=== PATIENT | male | born 1925 | race Asian ===

== ENCOUNTER 2016-09-02 11:33 | Inpatient (IN) | payer MEDICARE, MEDICAID ==
[~2016-09-02] VITALS: Ht 157.5 cm; Wt 50.3 kg
--- NOTE | 2016-09-02 11:45 | NUR ---
PT BIBA FOR "CHEST PAIN WHEN COUGHING"; AND GENERALIZED PAIN. PT AAOX1. VSS. MD AT BS FOR EVAL. NOTED DISCOLORATION ON B THUMBS. SAFETY AND COMFORT MEASURES PROVIDED. WILL MONITOR.
[2016-09-02 11:54] LABS: BASOPHILS % (AUTO) 0.5 % (0.0-2.0); EOSINOPHILS # (AUTO) 0.2 /CMM (0.0-0.7); HEMATOCRIT 50 % (39-51); HEMOGLOBIN 16.5 g/dL (13.5-17.5); LYMPHOCYTES # (AUTO) 3.1 /CMM (0.8-4.8); LYMPHOCYTES % (AUTO) 33.8 % (20.0-44.0); MEAN CORPUSCULAR HEMOGLOBIN 31 PG (26.0-33.0); MEAN CORPUSCULAR HGB CONC 33 g/dl (31.0-36.0); MEAN CORPUSCULAR VOLUME 95 fL (80-96); MONOCYTES # (AUTO) 0.5 /CMM (0.1-1.30); MONOCYTES % (AUTO) 5.8 % (2.0-12.0); NEUTROPHILS # (AUTO) 5.3 /CMM (1.8-8.9); NEUTROPHILS % (AUTO) 57.9 % (43.0-81.0); PLATELET COUNT (AUTO) 213 /CMM (150-450); RED BLOOD CELL COUNT(AUTO) 5.26 MIL/uL (4.5-6.0); WHITE BLOOD COUNT (AUTO) 9.1 K/uL (4.3-11.0)
[2016-09-02] MEDS ORDERED: FURO-145 PO (12:02)
[2016-09-02] MEDS ORDERED: GUAI10SY3 PO (12:02)
[2016-09-02] MEDS ORDERED: ALBU2.5V13 IH (12:02)
[2016-09-02] MEDS ORDERED: FLUT16SP NS (12:02)
[2016-09-02] MEDS ORDERED: ATOR10TA PO (12:02)
[2016-09-02] MEDS ORDERED: ACET-2605 PO (12:02)
[2016-09-02] MEDS ORDERED: FINA5TAB11 PO (12:02)
[2016-09-02] MEDS ORDERED: SPIR25TA PO (12:02)
[2016-09-02] MEDS ORDERED: DOCU-25 PO (12:02)
[2016-09-02] MEDS ORDERED: TAMS-12 PO (12:02)
[2016-09-02] MEDS ORDERED: ALBU18HF2 IH (12:02)
[2016-09-02] MEDS ORDERED: MULT-659 PO (12:02)
[2016-09-02] MEDS ORDERED: ERGO50003 PO (12:02)
[2016-09-02] MEDS ORDERED: GABA-532 PO (12:02)
[2016-09-02] MEDS ORDERED: SODI1TAB3 PO (12:02)
[2016-09-02] MEDS ORDERED: ATEN25TA PO (12:02)
[2016-09-02 12:06] LABS: CALCIUM, SERUM 8.9 mg/dL (8.5-10.1); CARBON DIOXIDE 31 mmol/L (21-32); CHLORIDE 97 mmol/L (98-107); CREATININE 0.9 mg/dL (0.6-1.3); GLUCOSE 91 mg/dL (74-106); POTASSIUM 4.3 mmol/L (3.5-5.1); SODIUM SERUM 131 mmol/L (136-145); UREA NITROGEN, BLOOD 16 mg/dL (7-18)
[2016-09-02 12:09] LABS: INR 0.96 (0.87-1.13)
[2016-09-02 12:12] LABS: ALANINE AMINOTRANSFERASE 20 U/L (12-78); ALKALINE PHOSPHATASE 62 U/L (46-116); ASPARTATE AMINOTRANSFERASE 21 U/L (15-37); BILIRUBIN,DIRECT 0.1 mg/dL (0.0-0.2); BILIRUBIN,TOTAL 0.6 mg/dL (0.2-1.0); TOTAL PROTEIN, SERUM 8.3 g/dL (6.4-8.2)
[2016-09-02 12:14] LABS: TROPONIN I < 0.017 ng/mL (0.00-0.056)
--- NOTE | 2016-09-02 13:00 | NUR ---
CALLED NURSING SUP. FOR TELE BED
--- NOTE | 2016-09-02 13:15 | NUR ---
DR.RABBANI MCCABE
--- NOTE | 2016-09-02 14:22 | NUR ---
REPORT GIVEN TO MACI ALLEN FOR TELE 312-2.
[2016-09-02 15:07] LABS: MAGNESIUM 2.2 mg/dL (1.8-2.4); PHOSPHORUS 3.8 mg/dL (2.5-4.9)
[2016-09-02 15:35] LABS: THYROID STIMULATING HORMONE 1.111 uIU/mL (0.358-3.74)
[2016-09-02 16:00] VITALS: BP 141/72
[2016-09-02] MEDS ORDERED: IV SET PRIMARY PUMP SET 1 EA INFUS.SET MC ONE ×2 (16:18→16:31)
[2016-09-02] MEDS: IV NS 0.9% 1,000 ML IV PRN (16:26)
[2016-09-02] MEDS: ASPIRIN 81 MG TAB.CHEW PO SCH (16:26)
[2016-09-02] MEDS: PANTOPRAZOLE 40 MG TABLET.DR PO SCH (16:26)
--- NOTE | 2016-09-02 16:30 | NUR ---
MS/BOARD MEMBER PT. WAS ADMITTED TO ROOM 312 BED 1. PT. WAS IN STABLE CONDITION. VITAL SIGNS BP 141/72, PULSE 69, RR 18, TEMP. 97.8 F, OXYGEN SATURATION IS 98%, AND SINUS RHYTHM 65. PT. WAS IN BED A&OX 1-2. PT. HAS A RIGHT ANTECUBITAL PATENT IV ACCESS SITE. IV FLUIDS ADMINISTERED NORMAL SALINE 70 ML/HR. 81 MG OF ASPIRIN AND PROTONIX PER MD ORDER. SKIN WAS ASSESSED, NO SKIN IMPAIRMENT. PT. HAS SKIN DISCOLORATION OF RIGHT AND LEFT THUMB, AND PHOTOS TAKEN. PT. WAS ASSIGNED TO DR. DUNCAN.
[2016-09-02 17:07] VITALS: BP 141/72
--- NOTE | 2016-09-02 18:30 | NUR ---
MS/RN CONTACTED DR. DUNCAN ON CELL PHONE. SAID THAT HE WOULD NOTIFY AN ENGRAVER WOOD DOCTOR TO CONTACT ME FOR NEW ORDERS.
--- NOTE | 2016-09-02 18:45 | NUR ---
MS/RN DR. JANUSZ OCONNELL CALLED AND PROVIDED NEW ORDER. MD ENDORSED TO ORDER CARDIAC DIET, IV HEP LOCK, CBC, BMP, MAGNESIUM, PHOSPHORUS, LIPID PANEL, AND TROPONIN EVERY 6 HOURS X2, AND ECHOCARDIOGRAM. COULD NOT FIND PT. HOME MEDICATION LIST AT THE TIME, AND MD REQUESTED TO CALL BACK WITH PT.'S HOME MEDICATION LIST.
--- NOTE | 2016-09-02 18:50 | NUR ---
MS/RN CALLED DOCTOR BACK. NO ONE ANSWERED AT DR. OCONNELL'S OFFICE TO PROVIDE PT.'S HOME MEDICATION LIST.
--- NOTE | 2016-09-02 19:00 | NUR ---
MS/RN CALLED DR. OCONNELL OFFICE, NO ANSWER. LEFT MESSAGE.
--- NOTE | 2016-09-02 19:30 | NUR ---
MS/RN CLOSING NOTE PT. IS LYING IN BED AWAKE, A&OX 1-2. PT. DID NOT C/O CHEST PAIN. NO S/S OF DISTRESS, NO SOB. IV FLUIDS RUNNING AT 70 ML/HR ON RIGHT IV ANTECUBITAL SITE. PT. HAS TELEMETRY LEADS ON AND IS IN SINUS RHYTHM 65 BPM. BED IS IN LOW POSITION, 2 SIDE RAILS UP, CALL LIGHT WITHIN REACH, AND ALL NEEDS ATTENDED TO. WILL ENDORSE REPORT TO PAVING BED MAKER NURSE.
--- NOTE | 2016-09-02 19:30 | NUR ---
HOT HEAD MACHINE OPERATOR NOTES RECEIVED PT IS LYING IN BED AWAKE, A&OX 1-2. PT. VERBALLY RESPONSIVE. FAMILY AT BED SIDE. NO S/S OF DISTRESS, NO SOB. IV FLUIDS RUNNING AT 70 ML/HR ON RIGHT IV ANTECUBITAL SITE. PT ON TELE MONITOR, SINUS RHYTHM 68 BPM. SAFETY PRECAUTIONS OBSERVED. BED IS IN LOW POSITION, CALL LIGHT WITHIN REACH, AND ALL NEEDS ATTENDED. WILL CONTINUE TO MONITOR. STILL AWAITING FOR DR. KENNEDY'S CALL BACK REGARDING THE MED RECON.
[2016-09-02 20:00] VITALS: BP 147/82
[2016-09-02] MEDS ORDERED: ALBUTEROL SULFATE 8 GM HFA.AER.AD IH PRN ×2 (20:30→22:00)
[2016-09-02] MEDS ORDERED: ACETAMINOPHEN 650 MG/20.3 ML UDC PO PRN (20:30)
[2016-09-02] MEDS ORDERED: ALBUTEROL FS 2.5 MG/0.5 ML VIAL.NEB NEB PRN (20:30)
--- NOTE | 2016-09-02 20:45 | NUR ---
RECEIVED A CALL BACK FROM BILLIE RAYMOND TO CONTINUE MEDICATIONS FROM MED [facility] AND ALSO ORDERED AMBIEN, ZOFRAN, NITRO OINTMENT AND LOVENOX , WITH NEW ORDERS NOTED AND CARRIED OUT.
[2016-09-02] MEDS ORDERED: ZOLPIDEM TARTRATE 5 MG TABLET PO PRN (21:00)
[2016-09-02] MEDS ORDERED: ENOXAPARIN SODIUM 40 MG/0.4 ML DISP.SYRIN SQ SCH (21:00)
[2016-09-02] MEDS ORDERED: ONDANSETRON HCL/PF 4 MG/2 ML VIAL IV PRN (21:00)
[2016-09-02] MEDS ORDERED: Z GUARD REMEDY 2 OZ OINT TP PRN (21:00)
[2016-09-02] MEDS ORDERED: FLUTICASONE 110MCG 1 EA INHALER IH SCH (21:00)
--- NOTE | 2016-09-02 21:22 | NUR ---
FAXED MED RECON TO PHARMACY AND SPOKE WITH SKINNY, SHE RECEIVED THE FAX ALREADY.
[2016-09-02] MEDS ORDERED: ERGOCALCIFEROL (VITAMIN D 2) 50,000 UNIT CAPSULE PO SCH (22:00)
[2016-09-02] MEDS ORDERED: ATORVASTATIN 10 MG TABLET PO SCH ×2 (22:00)
[2016-09-02] MEDS ORDERED: GABAPENTIN 100 MG CAPSULE PO PRN (22:00)
[2016-09-02] MEDS ORDERED: ALBUTEROL FS 2.5 MG/0.5 ML VIAL.NEB IH PRN (22:00)
[2016-09-02] MEDS ORDERED: MISCELLANEOUS MED 1 EA EA PO PRN (22:00)
[2016-09-02] MEDS ORDERED: TAMSULOSIN 0.4 MG CAP.SR.24H PO SCH (22:00)
[2016-09-02] MEDS ORDERED: GUAIFENESIN/CODEINE 10 ML UDC PO PRN (22:00)
[2016-09-02] MEDS: GUAIFENESIN/CODEINE 10 ML UDC PO PRN (23:59)
[2016-09-03] VITALS: BP 158/72
[2016-09-03] MEDS: NITROGLYCERIN 30 GM TUBE TP SCH ×4 (00:39→17:20)
[2016-09-03 04:00] VITALS: BP 121/54
[2016-09-03] MEDS: GUAIFENESIN/CODEINE 10 ML UDC PO PRN (06:23)
[2016-09-03] MEDS: IV NS 0.9% 1,000 ML IV PRN (06:43)
--- NOTE | 2016-09-03 06:52 | NUR ---
ARTISTS' BOOKING REPRESENTATIVE NOTES PT IN BED ASLEEP, A&OX 1-2. PT. AROUSES EASILY, VERBALLY RESPONSIVE. NO S/S OF DISTRESS, NO SOB. IV FLUIDS RUNNING AT 70 ML/HR ON RIGHT IV ANTECUBITAL SITE. PT ON TELE MONITOR, SINUS RHYTHM 68 BPM. SAFETY PRECAUTIONS OBSERVED. BED IS IN LOW POSITION, CALL LIGHT WITHIN REACH, AND ALL NEEDS ATTENDED. WILL ENDORSE TO NEXT SHIFT FOR ELI.
[2016-09-03 06:55] LABS: BASOPHILS % (AUTO) 0.3 % (0.0-2.0); EOSINOPHILS # (AUTO) 0.1 /CMM (0.0-0.7); EOSINOPHILS % (AUTO) 1.6 % (0.0-6.0); HEMATOCRIT 46 % (39-51); HEMOGLOBIN 14.8 g/dL (13.5-17.5); LYMPHOCYTES # (AUTO) 2.2 /CMM (0.8-4.8); MEAN CORPUSCULAR HEMOGLOBIN 31 PG (26.0-33.0); MEAN CORPUSCULAR HGB CONC 32 g/dl (31.0-36.0); MEAN CORPUSCULAR VOLUME 97 fL (80-96); MONOCYTES # (AUTO) 0.8 /CMM (0.1-1.30); NEUTROPHILS # (AUTO) 5.4 /CMM (1.8-8.9); NEUTROPHILS % (AUTO) 63.1 % (43.0-81.0); PLATELET COUNT (AUTO) 225 /CMM (150-450); RED BLOOD CELL COUNT(AUTO) 4.71 MIL/uL (4.5-6.0); WHITE BLOOD COUNT (AUTO) 8.5 K/uL (4.3-11.0)
[2016-09-03 07:04] VITALS: BP 122/72
[2016-09-03 07:06] LABS: ALANINE AMINOTRANSFERASE 22 U/L (12-78); ALBUMIN 3.4 g/dL (3.4-5.0); ALKALINE PHOSPHATASE 50 U/L (46-116); ASPARTATE AMINOTRANSFERASE 23 U/L (15-37); BILIRUBIN,TOTAL 0.7 mg/dL (0.2-1.0); CALCIUM, SERUM 8.7 mg/dL (8.5-10.1); CARBON DIOXIDE 27 mmol/L (21-32); CHLORIDE 101 mmol/L (98-107); CREATININE 0.9 mg/dL (0.6-1.3); GLUCOSE 72 mg/dL (74-106); MAGNESIUM 2.1 mg/dL (1.8-2.4); PHOSPHORUS 3.3 mg/dL (2.5-4.9); POTASSIUM 4.7 mmol/L (3.5-5.1); SODIUM SERUM 136 mmol/L (136-145); TOTAL PROTEIN, SERUM 7.1 g/dL (6.4-8.2); UREA NITROGEN, BLOOD 16 mg/dL (7-18)
[2016-09-03 07:20] LABS: TROPONIN I < 0.017 ng/mL (0.00-0.056)
--- NOTE | 2016-09-03 07:30 | NUR ---
CONTENT SPECIALIST NOTES RECEIVED PATIENT A/OX2-3 AT THIS TIME. PATIENT KNEW HE WAS IN THE HOSPITAL BUT DIDNT KNOW WHERE, KNEW HE WAS HERE FOR CHEST PAIN AND CONFUSED TO THE DATE. PATIENT DENIES SOB, DIFFICULTY BREATHING OR PAIN AT THIS TIME. STATES NO NEEDS. CALL LIGHT IN REACH, BED LOWERED AND LOCKED, RAILS UPX3 FOR SAFETY AND WILL ROUND Q2H OR LESS PER NEEDS.TELE NSR
[2016-09-03 08:00] VITALS: BP 122/72
[2016-09-03] MEDS: PANTOPRAZOLE 40 MG TABLET.DR PO SCH (08:45)
[2016-09-03] MEDS: SODIUM CHLORIDE 1000 MG TABLET.SOL PO SCH ×3 (08:45→17:20)
[2016-09-03] MEDS: DOCUSATE SODIUM 100 MG CAPSULE PO SCH ×2 (08:45→17:00)
[2016-09-03] MEDS: ASPIRIN 81 MG TAB.CHEW PO SCH (08:45)
[2016-09-03] MEDS ORDERED: SPIRONOLACTONE 25 MG TABLET PO SCH ×3 (09:00)
[2016-09-03] MEDS ORDERED: ATENOLOL 25 MG TABLET PO SCH ×2 (09:00)
[2016-09-03] MEDS ORDERED: Medication Not On Formulary EA (Sodium Chloride 1 GM) PO SCH (09:00)
[2016-09-03] MEDS ORDERED: FLUTICASONE PROPIONATE 16 GM BOTTLE NS SCH (09:00)
[2016-09-03] MEDS ORDERED: MULTIVITAMINS W-MINERALS 1 TAB TABLET PO SCH (09:00)
[2016-09-03] MEDS ORDERED: TAMSULOSIN 0.4 MG CAP.SR.24H PO SCH (09:00)
[2016-09-03] MEDS ORDERED: Medication Not On Formulary EA (Multivits,Th W-Fe,Other Min (Thera-M) 1 EACH) PO SCH (09:00)
[2016-09-03] MEDS ORDERED: FINASTERIDE (5 MG) 5 MG TABLET PO SCH ×2 (09:00)
[2016-09-03] MEDS ORDERED: GABAPENTIN 100 MG CAPSULE PO PRN (09:00)
[2016-09-03] MEDS ORDERED: DOCUSATE SODIUM 100 MG CAPSULE PO SCH (09:00)
[2016-09-03] MEDS ORDERED: FUROSEMIDE 20 MG TABLET PO SCH ×2 (09:00)
[2016-09-03 16:00] VITALS: BP 144/59
--- NOTE | 2016-09-03 16:11 | NUR ---
MS RN NOTES TRIED CONTACTING BOTH PATIENT SON AND DAUGHTER TO SEE IF THEY WOULD LIKE PNEUMOCOCCAL VACCINE FOR PATIENT; PATIENT IS CONFUSED. PER SNF PATIENT IS DUE
[2016-09-03 17:20] VITALS: BP 148/62
--- NOTE | 2016-09-03 18:05 | NUR ---
MS RN NOTES CALLED [facility] AND GAVE REPORT TO BRITT ALBERT
--- NOTE | 2016-09-03 18:26 | NUR ---
MS RN NOTES PATIENT STABLE NO COMPLICATIONS NO CHANGES. DENIES SOB, DIFFICULTY BREATHING OR PAIN. CALL LIGHT IN REACH, BED LOWERED AND LOCKED, RAILS UPX3 FOR SAFETY WITH BED ALARM ON. MULTIPLE CALLS TO FAMILY TO TRY AND GET A HOLD TO NOTIFY OF DC. WILL ATTEMPT AGAIN.
--- NOTE | 2016-09-03 18:30 | NUR ---
MS RN NOTES MESSAGE LEFT TO SON GUME TO NOTIFY OF DC WHEN AND WHERE
--- NOTE | 2016-09-03 19:35 | NUR ---
MS/RN NOTES PT AWAKE, A/OX2, ON ROOM AIR, RESTING COMFORTABLY IN BED. NO DISTRESS OR S/S OF PAIN NOTED. BREATHING EVEN AND UNLABORED. IV TO RAC REMOVED. BELONGINGS AND CHART TAKEN WITH PT. REPORT GIVEN TO EMT. PT DISCHARGED TO [facility] IN STABLE CONDITION.
[2016-09-06 10:18] LABS: *SPE A/G RATIO 1.1 (0.7-1.7); *SPE ALPHA-1-GLOBULIN 0.2 g/dL (0.0-0.4); *SPE ALPHA-2-GLOBULIN 0.7 g/dL (0.4-1.0); *SPE BETA GLOBULIN 1.3 g/dL (0.7-1.3); *SPE GLOBULIN, TOTAL 3.7 g/dL (2.2-3.9); *SPE M-SPIKE Not Observed g/dL (Not Observed); *SPE PROTEIN TOTAL 7.7 g/dL (6.0-8.5); *SPEGAMMA GLOBULIN 1.4 g/dL (0.4-1.8)
[2016-09-09] MEDS ORDERED: ERGOCALCIFEROL (VITAMIN D 2) 50,000 UNIT CAPSULE PO SCH (09:00)
== END 2016-09-03 19:35 | DRG 204 ==
LOC: ER 11:36 → TELE 13:56 → MED 09-03 09:18
PROVIDERS: ADMIT Internal Medicine Nephrology; ATTEND Internal Medicine Nephrology
DX: R07.81 Pleurodynia (principal); I10 Essential (primary) hypertension; N40.0 Benign prostatic hyperplasia without lower urinary tract symptoms; G62.9 Polyneuropathy, unspecified; F03.90 Unspecified dementia, unspecified severity, without behavioral disturbance, psychotic disturbance, mood disturbance, and anxiety; R79.89 Other specified abnormal findings of blood chemistry; M75.100 Unspecified rotator cuff tear or rupture of unspecified shoulder, not specified as traumatic; Z79.899 Other long term (current) drug therapy; I34.0 Nonrheumatic mitral (valve) insufficiency; I35.1 Nonrheumatic aortic (valve) insufficiency
CPT/HCPCS: 36415; 71010-TC; 80048-TC; 80053-TC; 80061-TC; 80076-TC; 82306; 83735-TC; 84100-TC; 84155; 84165; 84439-TC; 84443-TC; 84484-TC; 85025-TC; 85730-TC; 87081-TC; 93307-TC; A4606; J1650; J7030; Z7610